=== PATIENT | male | born 1955 | race African-American/Black ===

== ENCOUNTER 2020-10-17 18:16 | Observation (INO) | payer OTHER ==
--- OUTSIDE RECORDS SUMMARY | 2020-10-17 18:18 | XMS REPORT | Continuity of Care Document ---
:1955 Author Organization [facility] t Address [address] [place] [address] Care Team Providers Name Role Phone Unavailable Unavailable Unavailable Problems This patient has no known problems. Allergies, Adverse Reactions, Alerts This patient has no known allergies or adverse reactions. Medications Ordered Filled Start Stop Current Ordering Indication Dosage Frequency Signature Comments Components Source Medication Medication Date Date Medication? Clinician (SIG) Name Name Atorvastati Atorvastati Yes Loco [address] [facility] Cal[facility] Losartan Losartan Yes Loco [address] Potassium-H Pot[facility] Procedures This patient has no known procedures. Encounters Start End Encounter Admission Attending Care Care Encounter Source Date/Time Date/Time Type Type Clinicians Facility Department ID 2020-08-09 2020-08-09 Outpatient [facility] [id number] [facility] 2020-07-18 2020-07-18 Out[facility] [id number] [facility] 2020-06-20 2020-06-20 Out[facility] [id number] [facility] 2020-06-07 2020-06-07 Out[facility] [id number] [facility] 2020-02-24 2020-02-24 Out[facility] [id number] [facility] 2020-01-18 2020-01-18 [facility] [id number] [facility] 11[facility]53[facility]00 11:53:00 [facility] [place] [facility] 2019-10-12 2019-10-12 [facility] [id number] 10:15[facility]00 10:15:00 [facility] [place] [facility] 2019-08-11 2019-08-11 [facility] [id number] 13:30:00 13:30:00 [facility] [place] [employer] [facility] Results This patient has no known results.
[2020-10-17] MEDS ORDERED: ONDANSETRON 4 MG/2 ML VIAL ONE (20:09)
[2020-10-17] MEDS ORDERED: NA CHLORIDE 0.9% 500 ML ONE (20:09)
[2020-10-17] MEDS ORDERED: FAMOTIDINE 20 MG/2 ML VIAL IV ONE (20:09)
[2020-10-17] MEDS ORDERED: MORPHINE 4 MG/ML SYR ONE ×2 (20:09→21:34)
[2020-10-17 20:19] LABS: Absolute Lymphocytes (CBC) 1.2 K/uL (0.7-4.9); Basophils % 0.5 % (0-1.3); Hematocrit 46.2 % (39.6-49.0); Lymphocytes % 11.5 % (15.3-44.8); MPV 9.4 fL (7.6-11.3); RBC Red Blood Cell Count 5.36 M/uL (4.33-5.43)
[2020-10-17 20:38] LABS: ALT/SGPT 28 U/L (12-78); Albumin 3.6 g/dL (3.4-5.0); Alkaline Phosphatase 95 U/L (45-117); BUN Blood Urea Nitrogen 8 mg/dL (7-18); Bicarbonate 25 mmol/L (21-32); Bilirubin Direct < 0.1 mg/dL (0-0.2); Bilirubin Total 0.5 mg/dL (0.2-1.0); Glucose Level 109 mg/dL (74-106); Lipase 68 U/L (73-393); Sodium Level 140 mmol/L (136-145)
[2020-10-17 20:39] LABS: AST/SGOT 18 U/L (15-37); Potassium 3.8 mmol/L (3.5-5.1)
--- NOTE | 2020-10-17 21:17 | RAD REPORT ---
EXAM DESCRIPTION: CT - Abdomen Pelvis W Contrast - 10/17/2020 9:01 pm CLINICAL HISTORY: Abdominal pain COMPARISON: none. TECHNIQUE: Computed axial tomography of the abdomen pelvis was obtained. 100 cc Isovue-300 was admin istered intravenously. Oral contrast was not requested which limits evaluation of bowel. All CT scans are performed using dose optimization technique as appropriate and may include automated exposure control or mA/KV adjustment according to patient size. FINDINGS: The liver, spleen, pancreas, adrenal and kidneys appear unremarkable. There is no evidence of diverticulitis. Normal appendix Moderate dilatation of several loops of small bowel within the lower right abdomen/upper right pelvis . Edema is present within mesenteric leaves. Small amount of ascites. The wall of a loop of small bow el is mildly dilated within right lower abdomen Small left inguinal hernia contains fat IMPRESSION: Moderate dilatation of several loops of small bowel. This probably is secondary to infla mmation, less likely partial obstruction. If the patient's symptoms persist a followup abdominal plai n film series would be recommended. Thickening of the wall of a loop of small bowel likely related to inflammation
[2020-10-17] MEDS ORDERED: LIDOCAINE VISCOUS 2% SOLN 15 ML UDC ONE (22:33)
[2020-10-17] MEDS ORDERED: MAGNES/ALUMIN/SIMET 30ML UCUP ONE (22:33)
--- NOTE | 2020-10-17 22:57 | EDPHYS ---
Physician Documentation [facility] Name: Abel Guardado Age: 65 yrs Sex: Male : 1955 Arrival Date: 10/17/2020 Time: 18:18 Bed 8 Private MD: [facility] ED Physician Bogdan Lucas HPI: 10/17 19:59 This 65 yrs old Black Male presents to ER via Ambulatory with complaints of Abdominal mh7 Pain. 19:59 The patient presents with abdominal pain in the epigastric area. Onset: The mh7 symptoms/episode began/occurred yesterday. The symptoms do not radiate. 20:00 Associated signs and symptoms: Pertinent negatives: nausea, vomiting, and diarrhea, mh7 nausea and vomiting, anorexia, blood in stools, chest pain, constipation, diarrhea, dysuria, fever, headache, hematuria, nausea, palpitations, shortness of breath, testicular pain, vomiting, vomiting blood. The symptoms are described as intermittent, vague, waxing/waning. Modifying factors: The symptoms are alleviated by nothing, the symptoms are aggravated by nothing. Severity of pain: At its worst the pain was moderate last night, in the emergency department the pain is unchanged. Historical: - Allergies: 18:55 No Known Allergies; ph - Home Meds: 22:53 losartan-hydrochlorothiazide 100-12.5 mg oral tab 1 tab once daily for Hypertension ad5 [Active]; atorvastatin 40 mg oral tab 1 tab once daily [Active]; Prilosec 20 mg Oral cpDR 1 cap once daily [Active]; - PMHx: 18:55 Hyperlipidemia; Hypertension; ph - Immunization history:: Adult Immunizations up to date. - Social history:: Smoking status: unknown. ROS: 20:00 Constitutional: Negative for fever, chills, and weight loss, Eyes: Negative for injury, mh7 pain, redness, and discharge, ENT: Negative for injury, pain, and discharge, Neck: Negative for injury, pain, and swelling, Cardiovascular: Negative for chest pain, palpitations, and edema, Respiratory: Negative for shortness of breath, cough, wheezing, and pleuritic chest pain, Back: Negative for injury and pain, : Negative for injury, bleeding, discharge, and swelling, MS/Extremity: Negative for injury and deformity, Skin: Negative for injury, rash, and discoloration, Neuro: Negative for headache, weakness, numbness, tingling, and seizure, Psych: Negative for depression, anxiety, suicide ideation, homicidal ideation, and hallucinations, Allergy/Immunology: Negative for hives, rash, and allergies, Endocrine: Negative for neck swelling, polydipsia, polyuria, polyphagia, and marked weight changes, Hematologic/Lymphatic: Negative for swollen nodes, abnormal bleeding, and unusual bruising. Exam: 20:00 Constitutional: This is a well developed, well nourished patient who is awake, alert, mh7 and in no acute distress. Head/Face: Normocephalic, atraumatic. Eyes: Pupils equal round and reactive to light, extra-ocular motions intact. Lids and lashes normal. Conjunctiva and sclera are non-icteric and not injected. Cornea within normal limits. Periorbital areas with no swelling, redness, or edema. Neck: Trachea midline, no thyromegaly or masses palpated, and no cervical lymphadenopathy. Supple, full range of motion without nuchal rigidity, or vertebral point tenderness. No Meningismus. Chest/axilla: Normal chest wall appearance and motion. Nontender with no deformity. No lesions are appreciated. Cardiovascular: Regular rate and rhythm with a normal S1 and S2. No gallops, murmurs, or rubs. Normal PMI, no JVD. No pulse deficits. Respiratory: Lungs have equal breath sounds bilaterally, clear to auscultation and percussion. No rales, rhonchi or wheezes noted. No increased work of breathing, no retractions or nasal flaring. 20:00 Back: No spinal tenderness. No costovertebral tenderness. Full range of motion. Skin: Warm, dry with normal turgor. Normal color with no rashes, no lesions, and no evidence of cellulitis. MS/ Extremity: Pulses equal, no cyanosis. Neurovascular intact. Full, normal range of motion. Neuro: Awake and alert, GCS 15, oriented to person, place, time, and situation. Cranial nerves II-XII grossly intact. Motor strength 5/5 in all extremities. Sensory grossly intact. Cerebellar exam normal. Normal gait. Psych: Awake, alert, with orientation to person, place and time. Behavior, mood, and affect are within normal limits. 20:00 Abdomen/GI: Inspection: obese scar(s), are noted in the epigastric area, Bowel sounds: normal, in all quadrants, Palpation: moderate abdominal tenderness, in the epigastric area, mass, is not appreciated, rebound tenderness, is not appreciated, voluntary guarding, is not appreciated, involuntary guarding, is not appreciated, no appreciated organomegaly, Rectal exam: the exam is deferred, because of patient request, Indicators: McBurney's point is not tender, Duvall's sign is negative, Rovsing's sign is negative, Obturator sign is negative, Psoas sign is negative, Liver: no appreciated palpable abnormalities, Hernia: not appreciated. Vital Signs: 18:53 BP 135 / 83; Pulse 88; Resp 18; Temp 98.2; Pulse Ox 98% on R/A; Weight 87.54 kg; Height ph 5 ft. 9 in. (175.26 cm); 20:16 BP 132 / 74; Pulse 85; Resp 18 S; Pulse Ox 94% on R/A; ad5 21:05 BP 133 / 89; Pulse 87; Resp 15 S; Pulse Ox 98% on R/A; ad5 21:58 BP 137 / 82; Pulse 82; Resp 18; Pulse Ox 100% ; ea 23:56 BP 139 / 86; Pulse 80; Resp 18 S; Pulse Ox 100% on R/A; ad5 10/18 00:18 BP 124 / 77; Pulse 78; Resp 18; Pulse Ox 98% ; ea 10/17 18:53 Body Mass Index 28.50 (87.54 kg, 175.26 cm) ph MDM: 10/17 22:54 Differential diagnosis: bowel obstruction, cholecystitis, Cholelithiasis, mh7 diverticulitis, gastritis, gastroesophageal reflux disease, non-specific abd pain, pancreatitis, Peptic Ulcer Disease, Perf. Duodenal Ulcer, Perf. Gastric Ulcer, Pyelonephritis, Ureterolithiasis, urinary tract infection. Data reviewed: vital signs, nurses notes, lab test result(s), CBC, electrolytes, urinalysis, EKG, radiologic studies, CT scan. Data interpreted: Pulse oximetry: on room air is 100 %. Interpretation: normal. Counseling: I had a detailed discussion with the patient and/or guardian regarding: the historical points, exam findings, and any diagnostic results supporting the discharge/admit diagnosis, lab results, radiology results, the need for further work-up and treatment in the hospital. Response to treatment: the patient's symptoms have mildly improved after treatment. 22:56 Patient medically screened. [facility] 10/17 19:46 Order name: Basic Metabolic Panel; Complete Time: 20:45 [facility] 10/17 19:46 Order name: CBC with Diff; Complete Time: 20:45 [facility] 10/17 19:46 Order name: Hepatic Function; Complete Time: 20:45 [facility] 10/17 19:46 Order name: Lipase; Complete Time: 20:45 [facility] 10/18 00:13 Order name: SARS-COV-2 RT PCR [facility] 10/17 19:46 Order name: CT Abd/Pelvis - IV Contrast Only; Complete Time: 21:44 [facility] 10/17 19:46 Order name: IV Saline Lock; Complete Time: 20:00 [facility] 10/17 19:46 Order name: Labs collected and sent; Complete Time: 20:00 [facility] 10/17 19:46 Order name: EKG - Nurse/Tech; Complete Time: 19:59 mh7 Administered Medications: 19:51 Drug: Zofran (Ondansetron) 4 mg Route: IVP; Site: left antecubital; ad5 20:29 Follow up: Response: No adverse reaction ad5 19:52 Drug: morphine 4 mg Route: IVP; Site: left antecubital; ad5 20:29 Follow up: Response: No adverse reaction; Pain is decreased ad5 19:54 Drug: Pepcid (famotidine) 20 mg Route: IVP; Site: left antecubital; ad5 20:29 Follow up: Response: No adverse reaction ad5 19:55 Drug: NS 0.9% 500 ml Route: IV; Rate: bolus; Site: left antecubital; ad5 21:20 Follow up: IV Status: Completed infusion; IV Intake: 500ml ad5 21:10 Drug: morphine 4 mg Route: IVP; Site: left antecubital; ea 23:57 Follow up: Response: No adverse reaction; Pain is decreased; RASS: Alert and Calm (0) ad5 22:15 Drug: GI Cocktail without - (Maalox Suspension 30 ml, Lidocaine Liquid 2 % 15 ad5 ml) Route: PO; 23:57 Follow up: Response: No adverse reaction ad5 22:45 Drug: Rocephin (cefTRIAXone) 1 grams Route: IV; Rate: per protocol; Site: left ad5 antecubital; 23:57 Follow up: IV Status: Completed infusion ad5 22:48 Drug: Flagyl (metroNIDAZOLE) 500 mg Volume: 100 ml; Route: IVPB; Rate: 200 ml/hr; ad5 Infused Over: 30 mins; Site: left antecubital; 10/18 00:04 Follow up: Response: No adverse reaction; IV Status: Completed infusion ea Disposition: 10/17/20 22:56 Hospitalization ordered by Zachery Gao for Observation. Preliminary diagnosis is Intractable Abdominal Pain. - Bed requested for Telemetry/MedSurg (observation). - Status is Observation. ad5 - Condition is Stable. - Problem is new. - Symptoms have improved. Signatures: Dispatcher [employer] [facility] Ivon Price RN BISHNU tl1 Jossy Alfaro, RN RN Oly Ba, RN RN Bogdan Wagner MD MD 7 Jose Ernandez ad5 Jeremiah Leiva ak2 Corrections: (The following items were deleted from the chart) 10/17 23:16 22:58 CORONAVIRUS+MR.LAB.BRZ ordered. [facility] 10/18 00:17 10/17 22:56 Hospitalization Ordered by Zachery Gao MD for Observation. Preliminary tl1 diagnosis is Intractable Abdominal Pain. Bed requested for Telemetry/MedSurg (observation). Status is Observation. Condition is Stable. Problem is new. Symptoms have improved. 7 10/18 00:46 00:17 10/17/2020 22:56 Hospitalization Ordered by Zachery Gao MD for Observation. ad5 Preliminary diagnosis is Intractable Abdominal Pain. Bed requested for Telemetry/MedSurg (observation). Status is Observation. Condition is Stable. Problem is new. Symptoms have improved. tl1
--- NOTE | 2020-10-17 22:57 | ER ---
Nurse's Notes [facility] Name: Abel Guardado Age: 65 yrs Sex: Male : 1955 Arrival Date: 10/17/2020 Time: 18:18 Bed 8 Private MD: Loco Hill Diagnosis: Intractable Abdominal Pain Presentation: 10/17 18:53 Chief complaint: Patient states: Epigastric pain since yesterday morning, denies N/V/D, ph has hx of H. Pylori that was tx by Dr Keyes, states that pain feels similar. Coronavirus screen: Client denies travel out of the [place] in the last 14 days. At this time, the client does not indicate any symptoms associated with coronavirus-19. Ebola Screen: No symptoms or risks identified at this time. Initial Sepsis Screen: Does the patient meet any 2 criteria? No. Patient's initial sepsis screen is negative. Does the patient have a suspected source of infection? No. Patient's initial sepsis screen is negative. Risk Assessment: Do you want to hurt yourself or someone else? Patient reports no desire to harm self or others. Onset of symptoms was October 17, 2020. 18:53 Method Of Arrival: Ambulatory ph 18:53 Acuity: FRANCOIS 3 ph Triage Assessment: 19:28 General: Appears in no apparent distress. Behavior is calm, cooperative. Pain: ak2 Complains of pain in abdomen. GI: Reports upper abdominal pain. Historical: - Allergies: 18:55 No Known Allergies; ph - Home Meds: 22:53 losartan-hydrochlorothiazide 100-12.5 mg oral tab 1 tab once daily for Hypertension ad5 [Active]; atorvastatin 40 mg oral tab 1 tab once daily [Active]; Prilosec 20 mg Oral cpDR 1 cap once daily [Active]; - PMHx: 18:55 Hyperlipidemia; Hypertension; ph - Immunization history:: Adult Immunizations up to date. - Social history:: Smoking status: unknown. Screenin:27 Abuse screen: Denies threats or abuse. Denies injuries from another. Nutritional ak2 screening: No deficits noted. Tuberculosis screening: No symptoms or risk factors identified. Fall Risk None identified. Assessment: 19:28 GI: Bowel sounds present X 4 quads. ak2 19:43 General: Appears uncomfortable, Behavior is calm, cooperative, appropriate for age. ad5 Pain: Complains of pain in epigastric area Pain began 1 day ago. Is continuous. Neuro: No deficits noted. Level of Consciousness is awake, alert, obeys commands, Oriented to person, place, time, situation, Appropriate for age. Cardiovascular: No deficits noted. Heart tones present Capillary refill < 3 seconds Patient's skin is warm and dry. Rhythm is regular. Respiratory: No deficits noted. Airway is patent Respiratory effort is even, unlabored, Respiratory pattern is regular, symmetrical. GI: Abdomen is tender to palpation in epigastric area Reports upper abdominal pain, diarrhea. : No deficits noted. No signs and/or symptoms were reported regarding the genitourinary system. EENT: No deficits noted. No signs and/or symptoms were reported regarding the EENT system. Derm: No deficits noted. No signs and/or symptoms reported regarding the dermatologic system. Musculoskeletal: No deficits noted. No signs and/or symptoms reported regarding the musculoskeletal system. 20:16 Reassessment: Patient appears in no apparent distress at this time. Patient is alert, ad5 oriented x 3, equal unlabored respirations, skin warm/dry/pink. Patient states feeling better. 21:05 Reassessment: Patient appears in no apparent distress at this time. Patient and/or ad5 family updated on plan of care and expected duration. Pain level reassessed. Patient is alert, oriented x 3, equal unlabored respirations, skin warm/dry/pink. 22:16 Reassessment: Patient appears in no apparent distress at this time. Patient and/or ad5 family updated on plan of care and expected duration. Pain level reassessed. Patient is alert, oriented x 3, equal unlabored respirations, skin warm/dry/pink. Patient states symptoms have improved. 23:56 Reassessment: Patient appears in no apparent distress at this time. Patient and/or ad5 family updated on plan of care and expected duration. Pain level reassessed. Patient is alert, oriented x 3, equal unlabored respirations, skin warm/dry/pink. 10/18 00:03 Reassessment: Patient and/or family updated on plan of care and expected duration. Pain ea level reassessed. Patient is alert, oriented x 3, equal unlabored respirations, skin warm/dry/pink. Awaiting on covid results. Vital Signs: 10/17 18:53 BP 135 / 83; Pulse 88; Resp 18; Temp 98.2; Pulse Ox 98% on R/A; Weight 87.54 kg; Height ph 5 ft. 9 in. (175.26 cm); 20:16 BP 132 / 74; Pulse 85; Resp 18 S; Pulse Ox 94% on R/A; ad5 21:05 BP 133 / 89; Pulse 87; Resp 15 S; Pulse Ox 98% on R/A; ad5 21:58 BP 137 / 82; Pulse 82; Resp 18; Pulse Ox 100% ; ea 23:56 BP 139 / 86; Pulse 80; Resp 18 S; Pulse Ox 100% on R/A; ad5 10/18 00:18 BP 124 / 77; Pulse 78; Resp 18; Pulse Ox 98% ; ea 10/17 18:53 Body Mass Index 28.50 (87.54 kg, 175.26 cm) ph ED Course: 10/17 18:18 Patient arrived in ED. ds1 18:18 Andrews Hill MD is Private Physician. ds1 18:18 Loco Hill DO is Private Physician. ds1 18:55 Triage completed. ph 18:55 Arm band placed on Patient placed in waiting room, Patient notified of wait time. ph 19:24 Jeremiah Leiva is Primary Nurse. ak2 19:27 Bogdan Lucas MD is Attending Physician. mh7 19:27 Patient has correct armband on for positive identification. Bed in low position. Call ak2 light in reach. 19:27 No provider procedures requiring assistance completed. ak2 19:45 Inserted saline lock: 20 gauge in left antecubital area, using aseptic technique. ad5 21:01 CT Abd/Pelvis - IV Contrast Only In Process Unspecified. EDMS 22:56 Zachery Gao MD is Hospitalizing Provider. mh7 10/18 00:18 Patient admitted, IV remains in place. ea Administered Medications: 10/17 19:51 Drug: Zofran (Ondansetron) 4 mg Route: IVP; Site: left antecubital; ad5 20:29 Follow up: Response: No adverse reaction ad5 19:52 Drug: morphine 4 mg Route: IVP; Site: left antecubital; ad5 20:29 Follow up: Response: No adverse reaction; Pain is decreased ad5 19:54 Drug: Pepcid (famotidine) 20 mg Route: IVP; Site: left antecubital; ad5 20:29 Follow up: Response: No adverse reaction ad5 19:55 Drug: NS 0.9% 500 ml Route: IV; Rate: bolus; Site: left antecubital; ad5 21:20 Follow up: IV Status: Completed infusion; IV Intake: 500ml ad5 21:10 Drug: morphine 4 mg Route: IVP; Site: left antecubital; ea 23:57 Follow up: Response: No adverse reaction; Pain is decreased; RASS: Alert and Calm (0) ad5 22:15 Drug: GI Cocktail without - (Maalox Suspension 30 ml, Lidocaine Liquid 2 % 15 ad5 ml) Route: PO; 23:57 Follow up: Response: No adverse reaction ad5 22:45 Drug: Rocephin (cefTRIAXone) 1 grams Route: IV; Rate: per protocol; Site: left ad5 antecubital; 23:57 Follow up: IV Status: Completed infusion ad5 22:48 Drug: Flagyl (metroNIDAZOLE) 500 mg Volume: 100 ml; Route: IVPB; Rate: 200 ml/hr; ad5 Infused Over: 30 mins; Site: left antecubital; 10/18 00:04 Follow up: Response: No adverse reaction; IV Status: Completed infusion ea Intake: 10/17 21:20 IV: 500ml; Total: 500ml. ad5 Outcome: 22:56 Decision to Hospitalize by Provider. [facility] 10/18 00:17 Condition: stable ea Instructed on the need for admit, Demonstrated understanding of instructions. 00:22 Admitted to Med/surg accompanied by nurse, via wheelchair, Report called to BISHNU Segura ad5 00:46 Patient left the ED. ad5 Signatures: Dispatcher [employer] [facility] Lindsey Pleitez 1 Jossy Alfaro RN RN ph Antunez, Elena, RN RN ea Holmes, Maurice, MD MD [facility] Jose Ernandez ad5 Jeremiah Leiva
[2020-10-17] MEDS ORDERED: Levofloxacin500mg IV 500 MG/100 ML BAG IV ONE (23:00)
[2020-10-17] MEDS ORDERED: CEFTRIAXONE/SWI 1gm 1 GM/10 ML SYR ONE (23:00)
--- NOTE | 2020-10-17 23:45 | P.HP ---
Certification for Inpatient Patient admitted to: Observation With expected LOS: <2 Midnights Patient will require the following post-hospital care: None Practitioner: I am a practitioner with admitting privileges, knowledge of patient current condition, hospital course, and medical plan of care. Services: Services provided to patient in accordance with Admission requirements found in Title 42 Section 412.3 of the Code of Federal Regulations <Shahbaz Rao - Last Filed: 10/17/20 23:41> Patient History Date of Service: 10/17/20 Reason for admission: Enteritis History of Present Illness: 65-year-old male with history of hypertension, hyperlipidemia presents emergency department for 2 day history of abdominal pain. Pain is primarily epigastric, denies any nausea vomiting or diarrhea, last bowel movement today and normal. Labs unremarkable, CT abdomen pelvis demonstrates moderate dilatation of several loops of small bowel, probably secondary to inflammation less likely partial obstruction. Patient with significant amount of abdominal pain refractory to 2 rounds of morphine in the emergency department. ED provider wishes to admit under observation for further evaluation and management. - Past Medical/Surgical History -: Hypertension -: Hyperlipidemia -: Ex lap Psychosocial/ Personal History: Patient is unemployed, lives with his - Family History Brother -: Cancer Mother -: Diabetes - Social History Smoking Status: Never smoker Alcohol use: Yes CD- Drugs: No Caffeine use: Yes Place of Residence: Home <Shahbaz Rao - Last Filed: 10/17/20 23:41> Date of Service: 10/18/20 <Zachery Gao - Last Filed: 10/18/20 05:43> Review of Systems 10-point ROS is otherwise unremarkable Gastrointestinal: Abdominal Pain <Shahbaz Rao - Last Filed: 10/17/20 23:41> Physical Examination - Physical Exam General: Alert, In no apparent distress, Oriented x3 HEENT: Atraumatic, PERRLA, Mucous membr. moist/pink Neck: Supple, 2+ carotid pulse no bruit, No LAD Respiratory: Clear to auscultation bilaterally, Normal air movement Cardiovascular: Regular rate/rhythm, Normal S1 S2 Gastrointestinal: Normal bowel sounds, Tenderness (Mild generalized abdominal tenderness) Musculoskeletal: No tenderness Integumentary: No rashes Neurological: Normal gait, Normal speech, Normal strength at 5/5 x4 extr, Normal tone, Normal affect Lymphatics: No axilla or inguinal lymphadenopathy - Studies Laboratory Data (last 24 hrs) 10/17/20 19:58: WBC 10.30, Hgb 15.4, Hct 46.2, Plt Count 257 10/17/20 19:58: Sodium 140, Potassium 3.8, BUN 8, Creatinine 0.96, Glucose 109 H, Total Bilirubin 0.5, AST 18, ALT 28, Alkaline Phosphatase 95, Lipase 68 L <Shahbaz Rao - Last Filed: 10/17/20 23:41> - Studies Laboratory Data (last 24 hrs) 10/17/20 19:58: WBC 10.30, Hgb 15.4, Hct 46.2, Plt Count 257 10/17/20 19:58: Sodium 140, Potassium 3.8, BUN 8, Creatinine 0.96, Glucose 109 H, Total Bilirubin 0.5, AST 18, ALT 28, Alkaline Phosphatase 95, Lipase 68 L <Zachery Gao - Last Filed: 10/18/20 05:43> Assessment and Plan - Plan Assessment Abdominal pain secondary to enteritis versus early small bowel obstruction Hypertension, hyperlipidemia Plan Abdominal pain secondary to enteritis versus early small bowel obstruction: NPO, IVF, abdominal x-ray in the morning. IV antibiotics with Rocephin/Flagyl at this time. Patient still with positive bowel sounds, last bowel movement this afternoon in normal, still having flatus. Anticipate clinical improvement next 24 hr, if there is worsening or patient has bowel obstruction on x-ray will require surgical consult but not necessary at this time. DVT prophylaxis Lovenox 40 mg subcutaneous once daily. Hypertension, hyperlipidemia: Continue home medications when appropriate. Discharge Plan: Home Plan to discharge in: 24 Hours - Advance Directives Does patient have a Living Will: No Does patient have a Durable POA for Healthcare: No - Code Status/Comfort Care Code Status Assessed: Yes (Full code) Critical Care: No Time Spent Managing Pts Care (In Minutes): 55 <Shahbaz Rao - Last Filed: 10/17/20 23:41>
[2020-10-18] MEDS ORDERED: METRONIDAZOLE 500mg IVPB 500 MG/100 ML BAG IV SCH (01:08)
[2020-10-18] MEDS: D5 0.45 NS 1,000 ML IV SCH ×3 (01:17→20:09)
[2020-10-18 01:48] VITALS: BMI 29.9
[2020-10-18] MEDS ORDERED: ONDANSETRON 4 MG/2 ML VIAL IV PRN (02:00)
[2020-10-18 04:30] LABS: Absolute Lymphocytes (CBC) 1.4 K/uL (0.7-4.9); Basophils % 0.8 % (0-1.3); Hematocrit 41.7 % (39.6-49.0); Lymphocytes % 16.8 % (15.3-44.8); MPV 9.1 fL (7.6-11.3); RBC Red Blood Cell Count 4.81 M/uL (4.33-5.43)
[2020-10-18 04:51] LABS: ALT/SGPT 23 U/L (12-78); AST/SGOT 11 U/L (15-37); Albumin 2.9 g/dL (3.4-5.0); Alkaline Phosphatase 75 U/L (45-117); BUN Blood Urea Nitrogen 8 mg/dL (7-18); Bicarbonate 29 mmol/L (21-32); Bilirubin Total 0.3 mg/dL (0.2-1.0); Glucose Level 113 mg/dL (74-106); HDL Cholesterol 46 mg/dL (40-60); LDL Cholesterol, Calculated 98 (<130); Magnesium 1.9 mg/dL (1.8-2.4); Potassium 3.9 mmol/L (3.5-5.1); Protein, Total 6.7 g/dL (6.4-8.2); Sodium Level 142 mmol/L (136-145); Thyroid Stimulating Hormone 0.066 uIU/mL (0.360-3.740)
[2020-10-18 04:56] LABS: Urine Appearance CLEAR (Clear); Urine Bilirubin NEGATIVE (Negative); Urine Blood NEGATIVE (Negative); Urine Color YELLOW (Yellow); Urine Glucose NEGATIVE (Negative); Urine Protein NEGATIVE (Negative); Urine Urobilinogen 0.2 mg/dL (0.2-1.0); Urine pH 6.5 (5.0-7.0)
[2020-10-18 04:57] LABS: Urine Microscopic Reflex NO UMIC
[2020-10-18] MEDS: METRONIDAZOLE 500mg IVPB 500 MG/100 ML BAG IV SCH ×2 (07:30→16:00)
--- NOTE | 2020-10-18 07:57 | RAD REPORT ---
EXAM DESCRIPTION: RAD - Abdomen W Erect - 10/18/2020 6:33 am CLINICAL HISTORY: Eval for SBO Abdominal pain COMPARISON: Abdomen Pelvis W Contrast dated 10/17/2020 TECHNIQUE: Supine and upright views of the abdomen were obtained. FINDINGS: No free air or pneumatosis have developed. Contrast is present in the urinary bladder from the prior CT study. Air is present in nondilated colon down to the the distal rectum level. A few ai r-filled small bowel loops are visible upper normal in size. Small bowel pattern does appear to have diminished in prominence since the prior day CT study. No suspicious calcifications. Prominent degenerative change at the lumbosacral junction. IMPRESSION: Improved but not fully resolved prominent small bowel pattern. Normal bowel gas pattern in the colon. No free air, pneumatosis or other emergent finding.
[2020-10-18] MEDS ORDERED: PNEUMOCOCCAL VACCINE 0.5 ML IMVAC ONE (08:00)
[2020-10-18] MEDS ORDERED: CEFTRIAXONE 1 GM/NS 50 ML 1 GM/50 ML BAG IV SCH (09:00)
[2020-10-18] MEDS: ENOXAPARIN 40 MG/0.4 ML SQ SCH (09:00)
[2020-10-18] MEDS ORDERED: KCL 20 MEQ/100 mL IVPB 20 MEQ/100 ML BAG IV SCH (09:00)
[2020-10-18] MEDS: CEFTRIAXONE/SWI 1gm 1 GM/10 ML SYR IV SCH (09:02)
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
[2020-10-18] MEDS: MORPHINE 2 MG/ML SYR IV PRN ×2 (16:11→22:06)
[2020-10-18 21:14] VITALS: O2SAT 94
[2020-10-19] MEDS: METRONIDAZOLE 500mg IVPB 500 MG/100 ML BAG IV SCH ×2 (00:19→08:25)
[2020-10-19] MEDS: D5 0.45 NS 1,000 ML IV SCH ×2 (05:32→05:39)
[2020-10-19 05:59] LABS: Absolute Lymphocytes (CBC) 1.7 K/uL (0.7-4.9); Hematocrit 46.1 % (39.6-49.0); Lymphocytes % 28.1 % (15.3-44.8); MPV 9.2 fL (7.6-11.3); RBC Red Blood Cell Count 5.25 M/uL (4.33-5.43)
[2020-10-19 06:18] LABS: ALT/SGPT 25 U/L (12-78); AST/SGOT 17 U/L (15-37); Albumin 3.2 g/dL (3.4-5.0); Alkaline Phosphatase 78 U/L (45-117); BUN Blood Urea Nitrogen 6 mg/dL (7-18); Bicarbonate 29 mmol/L (21-32); Bilirubin Total 0.4 mg/dL (0.2-1.0); Glucose Level 94 mg/dL (74-106); Potassium 3.9 mmol/L (3.5-5.1); Protein, Total 7.2 g/dL (6.4-8.2); Sodium Level 140 mmol/L (136-145)
[2020-10-19] MEDS: CEFTRIAXONE/SWI 1gm 1 GM/10 ML SYR IV SCH (08:24)
[2020-10-19] MEDS: ENOXAPARIN 40 MG/0.4 ML SQ SCH (08:25)
[2020-10-19] MEDS ORDERED: POTASSIUM CL SA 10 MEQ TAB PO ONE (09:00)
--- NOTE | 2020-10-19 09:16 | RAD REPORT ---
EXAM DESCRIPTION: RAD - Abdomen 1 View (KUB) - 10/19/2020 5:46 am CLINICAL HISTORY: f/u SBO Pain FINDINGS: The bowel gas pattern is non-obstructive. No evidence of free air or pneumatosis. No suspi cious calcifications. No significant bony findings. IMPRESSION: No bowel obstruction pattern is seen.
[2020-10-19 13:32] VITALS: BP 118/69; TEMP 97.7
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
== END 2020-10-19 14:41 | disposition home or self-care (01) ==
LOC: ER 18:16 → ERHOLD 23:23 → 2ND 10-18 00:19
PROVIDERS: ADMIT Hospitalist; ATTEND Hospitalist
DX: K52.9 Noninfective gastroenteritis and colitis, unspecified (principal); I10 Essential (primary) hypertension; E78.5 Hyperlipidemia, unspecified; Z87.828 Personal history of other (healed) physical injury and trauma; Z80.9 Family history of malignant neoplasm, unspecified; Z83.3 Family history of diabetes mellitus
CPT/HCPCS: 96365; 96361; 93005; 85025 ×3; 80048; 36415 ×2; 83735 ×2; 80061; 80076; 84443; 81003; 84439; 83690; 80053 ×2; 74177; 74018; 74019; 96375; 99285; U0003; Q9967; J3480; J1650 ×2; J2270 ×2; J0696 ×3; J7799 ×4; J7040; J2405; G0378 ×3